=== PATIENT | male | born 1945 | race Caucasian/White ===

== ENCOUNTER → 2018-08-20 | Outpatient (CLI) | payer MEDICARE, BC ==
--- NOTE | 2018-08-21 09:12 | RADIOLOGY REPORT (SQ) ---
EXAM DESCRIPTION: MRI LUMBAR SPINE WITHOUT COMPLETED DATE/TIME: 08/20/2018 6:20 pm REASON FOR STUDY: LOW BACK PAIN M54.5 LOW BACK PAIN COMPARISON: None. TECHNIQUE: Sagittal and Axial imaging includes T1, T2, STIR and gradient echo sequences. Coronal T2/ HASTE imaging. LIMITATIONS: None. FINDINGS: VISUALIZED UPPER ABDOMEN: Limited evaluation. No acute or suspicious findings suggested. SEGMENTATION: No transitional anatomy. The lowest well-developed disc space is labeled L5-S1. ALIGNMENT: Anatomic. VERTEBRAE: Intact. BONE MARROW: Normal. No marrow replacement or reactive changes. A few incidental vertebral body xiao ngiomas. DISC SIGNAL: Decreased height and signal. POSTERIOR ELEMENTS: Generally intact. No pars defect evident. HARDWARE: None in the spine. CORD AND CONUS: Normal in size and signal intensity. Conus at the appropriate level. SOFT TISSUES: No aortic aneurysm seen. No bulky retroperitoneal adenopathy or mass. No paraspinal mas s or fluid. L1-L2: No significant spinal stenosis or exit foraminal stenosis. L2-L3: Minimal diffuse posterior annular disc bulge. Mild facet arthropathy. No significant spinal stenosis or exit foraminal stenosis. L3-L4: Mild diffuse posterior disc bulge. Moderate facet arthropathy. Mild spinal stenosis and left exit foraminal stenosis. L4-L5: Minimal diffuse posterior disc bulge. Moderate facet arthropathy. Right laminectomy. No sig nificant spinal stenosis or exit foraminal stenosis. L5-S1: Minimal diffuse posterior disc bulge. Moderate to severe facet arthropathy, worse on the righ t. No significant spinal stenosis or exit foraminal stenosis. LOWER THORACIC: Incompletely imaged. No stenosis seen. SACRUM: Visualized upper sacrum intact. OTHER: No other significant findings. IMPRESSION: MULTILEVEL CHRONIC DEGENERATIVE CHANGES DESCRIBED ABOVE. RIGHT LAMINECTOMY AT L4-L5. NO ACUTE FINDINGS. NO HIGH-GRADE STENOSIS OR IMPINGEMENT. TECHNICAL DOCUMENTATION: JOB ID: [id number] [employer]- All Rights Reserved Reading location - IP/workstation name: [email or web address]
== END ==
LOC: RAD 15:32
PROVIDERS: ATTEND Physician Assistant Surgical
DX: M54.5 Low back pain (principal); M51.16 Intervertebral disc disorders with radiculopathy, lumbar region
CPT/HCPCS: 72148